=== PATIENT | male | born 1990 | race Caucasian/White ===

== ENCOUNTER 2016-11-20 15:13 | Outpatient (CLI) | payer MEDICAID ==
[2016-11-20 17:25] LABS: BASOPHILS % (AUTO) 0.5 %; EOSINOPHILS # (AUTO) 0.1 10^3/uL (0.0-0.7); EOSINOPHILS % (AUTO) 1.4 %; HCT - HEMATOCRIT 45.9 % (42.0-52.0); HGB - HEMOGLOBIN 15.5 g/dL (14.0-18.0); LYMPHOCYTES # (AUTO) 2.7 10^3/uL (1.5-3.5); LYMPHOCYTES % (AUTO) 38.1 %; MEAN CORPUSCULAR HEMOGLOBIN 30.2 pg (27.0-31.0); MEAN CORPUSCULAR HGB CONC 33.8 g/dL (32.0-36.0); MEAN CORPUSCULAR VOLUME 89.4 fL (80.0-94.0); MEAN PLATELET VOLUME 8.1 fL (7.4-11.4); MONOCYTES # (AUTO) 0.5 10^3/uL (0.0-1.0); MONOCYTES % (AUTO) 7.4 %; NEUTROPHILS # (AUTO) 3.8 10^3/uL (1.5-6.6); NEUTROPHILS % (AUTO) 52.6 %; NUCLEATED RED BLOOD CELLS AUTO 0.1 /100WBC; RED BLOOD COUNT 5.13 10^6/uL (4.70-6.10); RED CELL DISTRIBUTION WIDTH 13.3 % (12.0-15.0); UNCORRECTED WHITE BLOOD COUNT 7.2 x10^3/uL; WHITE BLOOD COUNT 7.2 x10^3/uL (4.8-10.8)
[2016-11-20 18:09] LABS: ALBUMIN/GLOBULIN RATIO 1.2 (1.0-2.2); BILIRUBIN,TOTAL 0.4 mg/dL (0.2-1.0); CALCIUM 9.5 mg/dL (8.5-10.3); CREATININE 0.9 mg/dL (0.6-1.2); POTASSIUM 3.8 mmol/L (3.5-5.0); TOTAL PROTEIN 7.5 g/dL (6.7-8.2)
[2016-11-20 21:01] LABS: FERRITIN 45.8 ng/mL (23.9-336.2)
[2016-11-20 21:44] LABS: FOLATE > 49.60 ng/mL (5.90 - >24.8)
== END 2016-11-20 15:14 | disposition home or self-care (01) ==
LOC: LAB.F 15:13
PROVIDERS: ATTEND Internal Medicine Gastroenterology
DX: K50.90 Crohn's disease, unspecified, without complications (principal)
CPT/HCPCS: 36415; 80053; 82306; 82607; 82728; 82746; 83540; 84466; 84630; 85025; 85651; 86141

== ENCOUNTER 2017-01-20 12:33 | Outpatient (CLI) | payer MEDICAID | END 2017-01-20 12:34 | disposition critical access hospital (66) | LOC: EMS 12:33 | PROVIDERS: ATTEND Surgery | DX: R45.1 Restlessness and agitation (principal) | CPT/HCPCS: A0425; A0429 ==

== ENCOUNTER 2017-01-20 12:57 | Emergency (ER) | payer MEDICAID ==
[2017-01-20 13:06] VITALS: BP 99/64
--- NOTE | 2017-01-20 13:28 | ED Physician Documentation ---
PD HPI MHE - Stated complaint Stated Complaint: MHE - Chief complaint Chief Complaint: MHE - History obtained from History obtained from: Patient, EMS - History of Present Illness Primary symptom: Aggressive behavior Timing - onset: Today Pain level max: 0 Pain level now: 0 Contributing factors: Family Similar symptoms before: Other (aggresive behavior, sees [facility]. Reportedly was swearing and angry today. Seens his clinician tomorrow.) Recently seen: Not recently seen Review of Systems Ten Systems: 10 systems reviewed and negative Constitutional: denies: Fever, Chills Ears: denies: Ear pain Nose: denies: Rhinorrhea / runny nose, Congestion Throat: denies: Oral lesions / sores, Sore throat Cardiac: denies: Chest pain / pressure Respiratory: denies: Cough GI: denies: Abdominal Pain, Nausea, Diarrhea : denies: Dysuria Skin: denies: Rash Musculoskeletal: denies: Neck pain, Back pain Neurologic: denies: Headache PD PAST MEDICAL HISTORY - Past Medical History Cardiovascular: None Respiratory: Other Neuro: Other Endocrine/Autoimmune: None GI: Crohn's disease : None Psych: Depression Musculoskeletal: Fatigue, Chronic back pain, Other Derm: None - Past Surgical History Past Surgical History: Yes General: Colonoscopy - Present Medications Home Medications: Ambulatory Orders Medication Instructions Recorded Confirmed Certolizumab [Cimzia] 400 06/08/14 12/29/14 Trazodone HCl 350 mg PO DAILY 06/08/14 01/20/17 Divalproex Sodium [Depakote] 500 mg PO 09/16/15 12/09/15 Polyethylene Glycol 3350 [Miralax] 8.5 gm PO DAILY 09/16/15 01/20/17 Methylphenidate HCl 2 tab PO DAILY 12/10/15 01/20/17 [Methylphenidate ER] Divalproex Sodium [Depakote] 1,000 mg pe PO DAILY PM 01/20/17 01/20/17 FLUoxetine [PROzac] 10 mg PO PRN PRN 01/20/17 01/20/17 - Allergies Allergies/Adverse Reactions: Allergies Allergy/AdvReac Type Severity Reaction Status Date / Time mesalamine [From Pentasa] Allergy vomiting Verified 12/09/15 22:55 soybean Allergy Hives Verified 12/09/15 22:55 venom-honey bee Allergy Anaphylaxis Verified 12/09/15 22:55 [bee venom (honey bee)] - Social History Does the pt smoke?: No Smoking Status: Never smoker Does the pt drink ETOH?: No Does the pt have substance abuse?: No - Immunizations Immunizations are current?: Yes - POLST Patient has POLST: No PD ED PE NORMAL - Vitals Vital signs reviewed: Yes - General General: Alert and oriented X 3, No acute distress - HEENT HEENT: Moist mucous membranes - Neck Neck: Supple, no meningeal sign - Cardiac Cardiac: RRR, Strong equal pulses - Respiratory Respiratory: No respiratory distress, Clear bilaterally - Abdomen Abdomen: Soft, Non tender - Derm Derm: Warm and dry - Neuro Neuro: Alert and oriented X 3 - Psych Psych: Normal mood, Normal affect Results - Vitals Vitals: Vital Signs - 24 hr 01/20/17 12:59 Temperature 36.7 C Heart Rate 70 Respiratory 16 Rate Blood Pressure 99/64 O2 Saturation 92 Oxygen O2 Source Room air PD MEDICAL DECISION MAKING - ED course Complexity details: re-evaluated patient, considered differential, d/w patient, d/w family, d/w risk consultant (SCOTT Knight) ED course: Patient is calm and cooperative in the emergency department. No angry outbursts here. Social work was consulted and grandparents arrived in the emergency department. They are comfortable taking him home at this time. He has an appointment with [facility] tomorrow and the [facility] will call and check on the patient tonight at home. Patient and family counseled regarding signs and symptoms for which I believe and urgent re-evaluation would be necessary. Patient with good understanding of and agreement to plan and is comfortable going home at this time This document was made in part using voice recognition software. While efforts are made to proofread this document, sound alike and grammatical errors may occur. Departure - Departure Disposition: 01 Home, Self Care Clinical Impression: Aggressive behavior of adult Condition: Good Instructions: ED Stress React Follow-Up: your,counselor tomorrow [Other] Comments: Follow up with [facility] tomorrow. You may want to talk to your doctor about prescription medications for when you are angry or agitated. Discharge Date/Time: 01/20/17 15:12
== END 2017-01-20 15:12 | disposition home or self-care (01) ==
LOC: EDUNIT# → ED 12:57
DX: F91.8 Other conduct disorders (principal)
CPT/HCPCS: 99283; 99284

== ENCOUNTER 2017-07-15 09:45 | Outpatient (CLI) | payer MEDICAID ==
[2017-07-15 17:38] LABS: VALPROIC ACID (DEPAKOTE) 45.3 ug/mL
== END 2017-07-15 09:46 | disposition home or self-care (01) ==
LOC: LAB.F 09:45
PROVIDERS: ATTEND Psychiatry & Neurology Psychiatry
DX: Z79.899 Other long term (current) drug therapy (principal)
CPT/HCPCS: 36415; 80164

== ENCOUNTER 2017-08-04 16:00 | Emergency (ER) | payer MEDICAID ==
[2017-08-04 16:12] VITALS: BP 151/76
[2017-08-04] MEDS ORDERED: ACETAMINOPHEN 325 MG TABLET PO STA (16:41)
--- NOTE | 2017-08-04 16:42 | ED Physician Documentation ---
History of Present Illness - Stated complaint Stated Complaint: SHARP CHEST PX - Chief complaint Chief Complaint: General - History obtained from History obtained from: Patient - History of Present Illness Timing: Other (A few days ago he was hit to the anterior left chest wall while playing basketball and the pain is worse there today, a sharp pain that is worse with breathing, no radiation.) Review of Systems Constitutional: denies: Fever, Chills Cardiac: reports: Chest pain / pressure. denies: Palpitations, Pedal edema, Calf pain Respiratory: denies: Dyspnea, Cough PD PAST MEDICAL HISTORY - Past Medical History Cardiovascular: None Respiratory: Other Neuro: Other Endocrine/Autoimmune: None GI: Crohn's disease : None Psych: Depression Musculoskeletal: Fatigue, Chronic back pain, Other Derm: None - Past Surgical History Past Surgical History: Yes General: Colonoscopy - Present Medications Home Medications: Ambulatory Orders Medication Instructions Recorded Confirmed Certolizumab [Cimzia] 400 06/08/14 12/29/14 Trazodone HCl 350 mg PO DAILY 06/08/14 01/20/17 Divalproex Sodium [Depakote] 500 mg PO 09/16/15 12/09/15 Polyethylene Glycol 3350 [Miralax] 8.5 gm PO DAILY 09/16/15 01/20/17 Methylphenidate HCl 2 tab PO DAILY 12/10/15 01/20/17 [Methylphenidate ER] Divalproex Sodium [Depakote] 1,000 mg pe PO DAILY PM 01/20/17 01/20/17 FLUoxetine [PROzac] 10 mg PO PRN PRN 01/20/17 01/20/17 Methotrexate [Methotrexate] ORAL 08/04/17 Pantoprazole [Protonix] 40 mg PO DAILY 08/04/17 08/04/17 - Allergies Allergies/Adverse Reactions: Allergies Allergy/AdvReac Type Severity Reaction Status Date / Time mesalamine [From Pentasa] Allergy vomiting Verified 08/04/17 16:12 soybean Allergy Hives Verified 08/04/17 16:12 venom-honey bee Allergy Anaphylaxis Verified 08/04/17 16:12 [bee venom (honey bee)] - Social History Does the pt smoke?: No Smoking Status: Never smoker Does the pt drink ETOH?: No Does the pt have substance abuse?: No - Immunizations Immunizations are current?: Yes - POLST Patient has POLST: No PD ED PE NORMAL - Vitals Vital signs reviewed: Yes - General General: Alert and oriented X 3, No acute distress - Cardiac Cardiac: RRR, No murmur, Other (TTP about rib 6 or so just lateral to costochondral junction on the left) - Respiratory Respiratory: No respiratory distress, Clear bilaterally - Neuro Neuro: Alert and oriented X 3, Normal speech Results - Vitals Vitals: Vital Signs - 24 hr 08/04/17 16:09 Temperature 36.8 C Heart Rate 93 Respiratory 16 Rate Blood Pressure 151/76 H O2 Saturation 95 Oxygen O2 Source Room air - EKG (time done) 1605 Rate: Rate (enter#) (89) Rhythm: NSR [place]: Normal Intervals: Normal AR QRS: Normal Ischemia: Normal ST segments Computer interpretation: Agree with computer - Rads (name of study) L ribs and AJ chest Radiology: EMP read contemporaneously (NAD) Departure - Departure Disposition: 01 Home, Self Care Clinical Impression: Chest wall contusion Qualifiers: Encounter type: initial encounter Laterality: left Qualified Code(s): S20.212A - Contusion of left front wall of thorax, initial encounter Condition: Good Record reviewed to determine appropriate education?: Yes Instructions: ED Contusion Chest Wall Comments: Tylenol as needed for pain. Return if worse. Follow-up with your doctor in 1 week if not better. Discharge Date/Time: 08/04/17 17:32
--- NOTE | 2017-08-04 17:18 | XRAY Report ---
EXAM: LEFT RIB RADIOGRAPHY EXAM DATE: 08/04/2017 05:06 PM. CLINICAL HISTORY: Trauma, pain. COMPARISON: Chest dated 06/08/2014. TECHNIQUE: 1 view of the chest and 2 views of the ribs. FINDINGS: Bones: Normal. No fracture or bone lesion. Lungs: Clear. No effusion or pneumothorax. Mediastinum: Heart and mediastinal contours are unremarkable. Upper lobe vessels not distended. Other: None. IMPRESSION: Normal chest and rib radiography. [facility] Referring Provider Line: [phone] SITE ID: [id number]
--- NOTE | 2017-08-04 17:18 | XRAY Preliminary Report ---
Exam: XR RIBS W/PA CHEST LT IMPRESSION: Normal chest and rib radiography. [facility] SITE ID: [id number]
== END 2017-08-04 17:32 | disposition home or self-care (01) ==
LOC: ED 16:00
DX: S20.212A Contusion of left front wall of thorax, initial encounter (principal); W21.05XA Struck by basketball, initial encounter; X58.XXXA Exposure to other specified factors, initial encounter; Y93.67 Activity, basketball
CPT/HCPCS: 71101; 93005; 99283; A9270

== ENCOUNTER 2018-01-28 18:24 | Emergency (ER) | payer MEDICAID ==
--- NOTE | 2018-01-28 19:18 | ED Physician Documentation ---
PD HPI GI BLEED - Stated complaint Stated Complaint: RECTAL BLEED - Chief complaint Chief Complaint: General - History obtained from History obtained from: Patient - History of Present Illness Timing - onset: How many days ago (2-3) Timing - duration: Days (2-3) Timing - details: Gradual onset, Intermittant Associated symptoms: BRBPR (He has noticed perirectal pain with wiping and walking and has noted bright red blood on the toilet paper when wiping. He denies any obvious blood in his stool. He denies any general belly pain. He has not had any constipation. He states his bowel movements are soft and the last one was today. He does have history of Crohn's disease. He has not had any proctitis in the past.) Contributing factors: No: Sick contact, Bad food, Recent antibiotics Worsened by: Other (pain with BM and walking.) Similar symptoms before: Has not had sx before (history of crohns but no rectal involvement previously.) Recently seen: Not recently seen Review of Systems Constitutional: denies: Fever, Chills GI: denies: Nausea, Vomiting, Constipation, Bloody / black stool PD PAST MEDICAL HISTORY - Past Medical History Cardiovascular: None, Hypertension Respiratory: Other Endocrine/Autoimmune: None GI: Crohn's disease : None Psych: Depression Musculoskeletal: Fatigue, Chronic back pain, Other Derm: None - Past Surgical History Past Surgical History: Yes General: Appendectomy, Colonoscopy - Present Medications Home Medications: Ambulatory Orders Medication Instructions Recorded Confirmed Certolizumab [Cimzia] 400 06/08/14 12/29/14 Trazodone HCl 350 mg PO DAILY 06/08/14 01/20/17 Divalproex Sodium [Depakote] 500 mg PO 09/16/15 12/09/15 Polyethylene Glycol 3350 [Miralax] 8.5 gm PO DAILY 09/16/15 01/20/17 Methylphenidate HCl 2 tab PO DAILY 12/10/15 01/20/17 [Methylphenidate ER] Divalproex Sodium [Depakote] 1,000 mg pe PO DAILY PM 01/20/17 01/20/17 FLUoxetine [PROzac] 10 mg PO PRN PRN 01/20/17 01/20/17 Methotrexate [Methotrexate] ORAL 08/04/17 Pantoprazole [Protonix] 40 mg PO DAILY 08/04/17 08/04/17 Hydrocortisone Acetate [Anucort-Hc] 25 mg RC DAILY #7 supp.rect 01/28/18 - Allergies Allergies/Adverse Reactions: Allergies Allergy/AdvReac Type Severity Reaction Status Date / Time mesalamine [From Pentasa] Allergy vomiting Verified 01/28/18 18:35 soybean Allergy Hives Verified 01/28/18 18:35 venom-honey bee Allergy Anaphylaxis Verified 01/28/18 18:35 [bee venom (honey bee)] - Social History Does the pt smoke?: No Smoking Status: Never smoker Does the pt drink ETOH?: No Does the pt have substance abuse?: No - Immunizations Immunizations are current?: Yes - POLST Patient has POLST: No PD ED PE NORMAL - Vitals Vital signs reviewed: Yes - General General: Alert and oriented X 3, No acute distress, Well developed/nourished - Abdomen Abdomen: Soft, Non tender - Male Male : Deferred - Rectal Rectal: Other (no perirectal tenderness nor swelling. No skin sores. No external hemorrhoids. Digital exam shows area of soft fullness/inflammation c/w internal hemorrhoid but does not feel thrombosed. Stool in vault is brown and soft and tests guiac negative. ) - Derm Derm: Normal color, Warm and dry - Neuro Neuro: Alert and oriented X 3, No motor deficit, Normal speech Results - Vitals Vitals: Vital Signs - 24 hr 01/28/18 18:33 Temperature 36.1 C L Heart Rate 97 Respiratory 18 Rate Blood Pressure 109/76 O2 Saturation 97 Oxygen O2 Source Room air PD MEDICAL DECISION MAKING - ED course Complexity details: considered differential, d/w patient - Sepsis Event Vital Signs: Vital Signs - 24 hr 01/28/18 18:33 Temperature 36.1 C L Heart Rate 97 Respiratory 18 Rate Blood Pressure 109/76 O2 Saturation 97 Oxygen O2 Source Room air Departure - Departure Disposition: 01 Home, Self Care Clinical Impression: Rectal pain, Internal hemorrhoid Crohns disease Qualifiers: Gastrointestinal tract location: unspecified location Digestive disease complication type: without complication Qualified Code(s): K50.90 - Crohn's disease, unspecified, without complications Condition: Stable Record reviewed to determine appropriate education?: Yes Instructions: ED Hemorrhoids Follow-Up: Abner Galloway MD [Primary Care Provider] - Prescriptions: Hydrocortisone Acetate [Anucort-Hc] 25 mg RC DAILY #7 supp.rect Comments: I can feel an internal hemorrhoid. Your stool is guaiac negative so no obvious bleeding from up higher. There is no signs of abscess or fistula in the perirectal area. We will treat this with steroid suppositories daily for a week. Recheck if not improving over the next several days to week.Tylenol if needed for pains.
[2018-01-28] MEDS ORDERED: HYDROCORTISONE 25 MG SUPPOSITORY PR STA (19:40)
[2018-01-28 20:00] VITALS: BP 118/71
== END 2018-01-28 20:00 | disposition home or self-care (01) ==
LOC: ED 18:24
DX: K62.89 Other specified diseases of anus and rectum (principal); K64.8 Other hemorrhoids; K50.90 Crohn's disease, unspecified, without complications; I10 Essential (primary) hypertension
CPT/HCPCS: 99283; J3490

== ENCOUNTER 2018-02-08 09:47 | Emergency (ER) | payer MEDICAID ==
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
[2018-02-08 11:15] LABS: MUDS CUTOFF CONCENTRATIONS CUTOFF CONC BELOW:
[2018-02-08 11:20] LABS: BILIRUBIN,URINE NEGATIVE (NEGATIVE); CLARITY,URINE CLEAR (CLEAR); GLUCOSE, URINE (UA) NEGATIVE (NEGATIVE); KETONES,URINE (UA) NEGATIVE (NEGATIVE); LEUKOCYTE ESTERASE, URINE NEGATIVE (NEGATIVE); NITRITE,URINE NEGATIVE (NEGATIVE); OCCULT BLOOD,URINE NEGATIVE (NEGATIVE); PH,URINE 7.5 PH (5.0-7.5); PROTEIN,URINE NEGATIVE (NEGATIVE); UROBILINOGEN,URINE 0.2 (NORMAL) E.U./dL (NORMAL)
[2018-02-08 11:34] LABS: COCAINE SCREEN URINE NEGATIVE (NEGATIVE); METHAMPHETAMINES SCREEN, URINE NEGATIVE (NEGATIVE)
[2018-02-08 11:35] LABS: AMPHETAMINE SCREEN,URINE NEGATIVE (NEGATIVE); BENZODIAZEPINES SCREEN, URINE POSITIVE (NEGATIVE); METHADONE SCREEN, URINE NEGATIVE (NEGATIVE); OPIATE SCREEN, URINE NEGATIVE (NEGATIVE); OXYCODONE SCREEN, URINE NEGATIVE (NEGATIVE); PROPOXYPHENE SCREEN, URINE NEGATIVE (NEGATIVE); TRICYCLIC ANTIDEPRESSANT,URINE NEGATIVE (NEGATIVE)
[2018-02-08 11:58] LABS: BASOPHILS # (AUTO) 0.1 10^3/uL (0.0-0.1); BASOPHILS % (AUTO) 0.8 %; EOSINOPHILS # (AUTO) 0.1 10^3/uL (0.0-0.7); EOSINOPHILS % (AUTO) 1.4 %; HGB - HEMOGLOBIN 14.5 g/dL (14.0-18.0); LYMPHOCYTES # (AUTO) 2.9 10^3/uL (1.5-3.5); LYMPHOCYTES % (AUTO) 42.5 %; MEAN CORPUSCULAR HEMOGLOBIN 30.7 pg (27.0-31.0); MEAN CORPUSCULAR HGB CONC 34.9 g/dL (32.0-36.0); MEAN PLATELET VOLUME 7.3 fL (7.4-11.4); MONOCYTES # (AUTO) 0.6 10^3/uL (0.0-1.0); MONOCYTES % (AUTO) 8.6 %; NEUTROPHILS # (AUTO) 3.1 10^3/uL (1.5-6.6); NEUTROPHILS % (AUTO) 46.7 %; PLT - PLATELET COUNT 274 10^3/uL (130-450); RED CELL DISTRIBUTION WIDTH 13.8 % (12.0-15.0); WHITE BLOOD COUNT 6.7 x10^3/uL (4.8-10.8)
[2018-02-08 12:10] LABS: ALBUMIN 3.7 g/dL (3.2-5.5); ALBUMIN/GLOBULIN RATIO 1.2 (1.0-2.2); ALKALINE PHOSPHATASE 50 IU/L (42-121); ALT ALANINE AMINOTRANSFERASE 27 IU/L (10-60); AST ASPARTATE AMINOTRANSFERASE 20 IU/L (10-42); BILIRUBIN,TOTAL 0.4 mg/dL (0.2-1.0); BUN - BLOOD UREA NITROGEN 14 mg/dL (6-20); CARBON DIOXIDE - CO2 28 mmol/L (21-32); CHLORIDE 100 mmol/L (101-111); CREATININE 0.8 mg/dL (0.6-1.2); GFR - MDRD 117 (>89); GLUCOSE 92 mg/dL (70-100); LIPASE 27 U/L (22-51); SODIUM 137 mmol/L (135-145); TOTAL PROTEIN 6.8 g/dL (6.7-8.2)
[2018-02-08 12:12] LABS: VALPROIC ACID (DEPAKOTE) 72.6 ug/mL
[2018-02-08 18:03] VITALS: BP 111/79
== END 2018-02-08 18:22 | disposition home or self-care (01) ==
LOC: ED 09:47
DX: F91.8 Other conduct disorders (principal); I10 Essential (primary) hypertension; Q86.0 Fetal alcohol syndrome (dysmorphic)
CPT/HCPCS: 36415; 80053; 80164; 80306; 80320; 81001; 81003; 83690; 85025; 87086; 99283; 99284

== ENCOUNTER 2018-07-22 11:15 | Outpatient (CLI) | payer MEDICAID | END 2018-07-22 11:16 | disposition home or self-care (01) | LOC: LAB 11:15 | PROVIDERS: ATTEND Registered Nurse | DX: Z53.9 Procedure and treatment not carried out, unspecified reason (principal) ==

== ENCOUNTER 2018-07-27 07:28 | Outpatient (CLI) | payer MEDICAID ==
[2018-07-27 10:13] LABS: HGB - HEMOGLOBIN 15.9 g/dL (14.0-18.0); MEAN CORPUSCULAR HEMOGLOBIN 30.9 pg (27.0-31.0); MEAN CORPUSCULAR HGB CONC 34.8 g/dL (32.0-36.0); MEAN CORPUSCULAR VOLUME 88.9 fL (80.0-94.0); MEAN PLATELET VOLUME 7.6 fL (7.4-11.4); RED BLOOD COUNT 5.14 10^6/uL (4.70-6.10); RED CELL DISTRIBUTION WIDTH 13.3 % (12.0-15.0); WHITE BLOOD COUNT 6.1 x10^3/uL (4.8-10.8)
[2018-07-27 10:18] LABS: ALBUMIN 4.1 g/dL (3.2-5.5); ALBUMIN/GLOBULIN RATIO 1.2 (1.0-2.2); ALKALINE PHOSPHATASE 51 IU/L (42-121); ALT ALANINE AMINOTRANSFERASE 48 IU/L (10-60); AST ASPARTATE AMINOTRANSFERASE 30 IU/L (10-42); BILIRUBIN,TOTAL 0.6 mg/dL (0.2-1.0); BUN - BLOOD UREA NITROGEN 16 mg/dL (6-20); CALCIUM 9.6 mg/dL (8.5-10.3); CARBON DIOXIDE - CO2 27 mmol/L (21-32); CHLORIDE 101 mmol/L (101-111); CREATININE 0.9 mg/dL (0.6-1.2); GFR - MDRD 102 (>89); GLUCOSE 93 mg/dL (70-100); SODIUM 138 mmol/L (135-145); TOTAL PROTEIN 7.5 g/dL (6.7-8.2); VALPROIC ACID (DEPAKOTE) 89.3 ug/mL
[2018-07-27 10:30] LABS: HB2 TOTAL 17.4 g/dL; HEMOGLOBIN A1C 0.53 g/dL; HEMOGLOBIN A1C % 4.9 % (4.6-6.2)
== END 2018-07-27 07:29 | disposition home or self-care (01) ==
LOC: LAB.F 07:28
PROVIDERS: ATTEND Registered Nurse
DX: Z79.899 Other long term (current) drug therapy (principal)
CPT/HCPCS: 36415; 80053; 80164; 83036; 84443; 85027

== ENCOUNTER 2020-02-09 10:13 | Outpatient (CLI) | payer MEDICAID ==
--- NOTE | 2020-02-09 13:54 | XRAY Report ---
PROCEDURE: Chest 1 View X-Ray INDICATIONS: POSITIVE QUANTIFERON-RB TECHNIQUE: One view of the chest was acquired. COMPARISON: Chest x-ray/rib series 07/11/2017 FINDINGS: Surgical changes and devices: None. Lungs and pleura: No pleural effusions or pneumothorax. Lungs are clear. Mediastinum: Mediastinal contours appear normal. Heart size is normal. Bones and chest wall: No suspicious bony lesions. Overlying soft tissues appear unremarkable. IMPRESSION: No acute pulmonary process. Reviewed by: Shae Chilel MD on 02/09/2020 1:53 PM PDT Approved by: Shae Chilel MD on 02/09/2020 1:53 PM PDT Station ID: [id number]
== END 2020-02-09 10:14 | disposition home or self-care (01) ==
LOC: DI 10:13
PROVIDERS: ATTEND Physician Assistant
DX: R76.12 Nonspecific reaction to cell mediated immunity measurement of gamma interferon antigen response without active tuberculosis (principal)
CPT/HCPCS: 71045

== ENCOUNTER 2020-03-12 12:03 | Outpatient (CLI) | payer MEDICAID | END 2020-03-12 12:04 | disposition home or self-care (01) | LOC: COV 12:03 | PROVIDERS: ATTEND Family Medicine | DX: R05 Cough (principal); M79.10 Myalgia, unspecified site; R53.83 Other fatigue; R68.83 Chills (without fever); J02.9 Acute pharyngitis, unspecified; R11.0 Nausea; Z20.828 Contact with and (suspected) exposure to other viral communicable diseases ==

== ENCOUNTER 2020-09-02 07:00 | Outpatient (CLI) | payer MEDICAID | END 2020-09-02 23:59 | disposition home or self-care (01) | LOC: COV 07:00 | PROVIDERS: ATTEND Family Medicine | DX: R50.9 Fever, unspecified (principal); R53.83 Other fatigue; R07.0 Pain in throat; Z20.822 Contact with and (suspected) exposure to COVID-19 ==

== ENCOUNTER 2020-10-28 18:29 | Emergency (ER) | payer MEDICAID ==
[2020-10-28 18:37] VITALS: BP 130/85
[2020-10-28] MEDS ORDERED: HYDROcod/ACETAM 5/325 MG TABLET PO STA (18:44)
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
== END 2020-10-28 19:40 | disposition home or self-care (01) ==
LOC: ED 18:29
DX: S42.035A Nondisplaced fracture of lateral end of left clavicle, initial encounter for closed fracture (principal); W01.198A Fall on same level from slipping, tripping and stumbling with subsequent striking against other object, initial encounter; Y93.55 Activity, bike riding; I10 Essential (primary) hypertension
CPT/HCPCS: 73030; 99283; 99284; A9270

== ENCOUNTER 2021-01-24 09:39 | Outpatient (CLI) | payer MEDICAID ==
[2021-01-24 14:36] LABS: BASOPHILS # (AUTO) 0.1 10^3/uL (0.0-0.1); BASOPHILS % (AUTO) 0.8 %; EOSINOPHILS # (AUTO) 0.1 10^3/uL (0.0-0.7); EOSINOPHILS % (AUTO) 2.1 %; HGB - HEMOGLOBIN 15.1 g/dL (14.0-18.0); LYMPHOCYTES # (AUTO) 2.2 10^3/uL (1.5-3.5); LYMPHOCYTES % (AUTO) 36.2 %; MEAN CORPUSCULAR HEMOGLOBIN 30.1 pg (27.0-31.0); MEAN CORPUSCULAR HGB CONC 33.6 g/dL (32.0-36.0); MEAN CORPUSCULAR VOLUME 89.6 fL (80.0-94.0); MEAN PLATELET VOLUME 9.7 fL (7.4-11.4); MONOCYTES # (AUTO) 0.6 10^3/uL (0.0-1.0); NEUTROPHILS # (AUTO) 3.2 10^3/uL (1.5-6.6); NEUTROPHILS % (AUTO) 51.6 %; PLT - PLATELET COUNT 355 10^3/uL (130-450); RED BLOOD COUNT 5.02 10^6/uL (4.70-6.10); RED CELL DISTRIBUTION WIDTH 12.4 % (12.0-15.0); WHITE BLOOD COUNT 6.1 x10^3/uL (4.8-10.8)
[2021-01-24 14:57] LABS: ALBUMIN 4.3 g/dL (3.2-5.5); ALBUMIN/GLOBULIN RATIO 1.1 (1.0-2.2); BILIRUBIN,TOTAL 1.1 mg/dL (0.2-1.0); CALCIUM 9.6 mg/dL (8.5-10.3); CREATININE 0.7 mg/dL (0.6-1.2); TOTAL PROTEIN 8.1 g/dL (6.7-8.2)
== END 2021-01-24 09:40 | disposition home or self-care (01) ==
LOC: LAB.S 09:39
PROVIDERS: ATTEND Internal Medicine
DX: Z22.7 Latent tuberculosis (principal)
CPT/HCPCS: 36415; 80053; 85025

== ENCOUNTER 2021-01-31 08:57 | Outpatient (CLI) | payer MEDICAID ==
[2021-01-31 15:45] LABS: ALBUMIN/GLOBULIN RATIO 1.1 (1.0-2.2); BILIRUBIN,TOTAL 0.7 mg/dL (0.2-1.0); CALCIUM 9.3 mg/dL (8.5-10.3); CREATININE 0.8 mg/dL (0.6-1.2); POTASSIUM 4.6 mmol/L (3.5-5.0); TOTAL PROTEIN 7.7 g/dL (6.7-8.2)
== END 2021-01-31 08:58 | disposition home or self-care (01) ==
LOC: LAB.S 08:57
PROVIDERS: ATTEND Internal Medicine
DX: D84.821 Immunodeficiency due to drugs (principal); Z79.899 Other long term (current) drug therapy; Z79.2 Long term (current) use of antibiotics
CPT/HCPCS: 36415; 80053

== ENCOUNTER 2021-03-14 09:17 | Outpatient (CLI) | payer MEDICAID ==
[2021-03-14 15:30] LABS: ALBUMIN 4.1 g/dL (3.2-5.5); ALBUMIN/GLOBULIN RATIO 1.1 (1.0-2.2); BASOPHILS # (AUTO) 0.1 10^3/uL (0.0-0.1); BASOPHILS % (AUTO) 0.7 %; BILIRUBIN,TOTAL 0.5 mg/dL (0.2-1.0); CALCIUM 9.9 mg/dL (8.5-10.3); CREATININE 0.6 mg/dL (0.6-1.2); EOSINOPHILS # (AUTO) 0.2 10^3/uL (0.0-0.7); EOSINOPHILS % (AUTO) 2.5 %; HCT - HEMATOCRIT 45.8 % (42.0-52.0); HGB - HEMOGLOBIN 15.2 g/dL (14.0-18.0); LYMPHOCYTES # (AUTO) 2.5 10^3/uL (1.5-3.5); LYMPHOCYTES % (AUTO) 34.6 %; MEAN CORPUSCULAR HEMOGLOBIN 29.5 pg (27.0-31.0); MEAN CORPUSCULAR HGB CONC 33.2 g/dL (32.0-36.0); MEAN CORPUSCULAR VOLUME 88.8 fL (80.0-94.0); MEAN PLATELET VOLUME 9.7 fL (7.4-11.4); MONOCYTES # (AUTO) 0.5 10^3/uL (0.0-1.0); NEUTROPHILS # (AUTO) 3.9 10^3/uL (1.5-6.6); NEUTROPHILS % (AUTO) 54.6 %; PLT - PLATELET COUNT 379 10^3/uL (130-450); POTASSIUM 4.1 mmol/L (3.5-5.0); RED BLOOD COUNT 5.16 10^6/uL (4.70-6.10); RED CELL DISTRIBUTION WIDTH 13.1 % (12.0-15.0); TOTAL PROTEIN 7.9 g/dL (6.7-8.2); WHITE BLOOD COUNT 7.1 x10^3/uL (4.8-10.8)
== END 2021-03-14 09:18 | disposition home or self-care (01) ==
LOC: LAB.S 09:17
PROVIDERS: ATTEND Internal Medicine
DX: Z22.7 Latent tuberculosis (principal); R21 Rash and other nonspecific skin eruption; R11.2 Nausea with vomiting, unspecified
CPT/HCPCS: 36415; 80053; 85025

== ENCOUNTER 2022-12-06 13:25 | Outpatient (CLI) | payer MEDICAID | END 2022-12-06 23:59 | disposition critical access hospital (66) | LOC: EMS 13:25 | DX: R51.9 Headache, unspecified (principal); R11.2 Nausea with vomiting, unspecified | CPT/HCPCS: A0425; A0429; A0999 ==

== ENCOUNTER 2022-12-06 13:44 | Emergency (ER) | payer MEDICAID ==
[2022-12-06] MEDS ORDERED: HYDROmorphone 0.5 MG/0.5 ML SYRINGE IM STA (13:56)
[2022-12-06] MEDS ORDERED: KETOROLAC 60 MG/2 ML VIAL IM STA (13:56)
[2022-12-06] MEDS ORDERED: DROPERIDOL 5 MG/2 ML VIAL IM STA (13:56)
--- NOTE | 2022-12-06 14:01 | ED Physician Documentation ---
History of Present Illness - Stated complaint Stated Complaint: KING/NAUSEA/VOMITING - Chief complaint Chief Complaint: Neuro - History obtained from History obtained from: Patient, EMS - Additonal information Additional information: The patient comes to the emergency department chief complaint of headache that started around 630 this morning. He states that it started after he ate 2 sandwiches and a bowl of cereal. He states that he usually gets headaches when he is stressed out or has been in the sun too much. He denies any recent head injury. He states the headache persisted throughout the morning and then after he tried to eat lunch around noon, he vomited several times. The patient states that normally takes Tylenol for his headaches but he did not take anything for the headache today. He states this feels similar to headaches he has had previously. No other symptoms of illness. No diarrhea, sore throat, rhinorrhea, or cough. No fevers or chills. He states that he is otherwise fairly healthy. He did just have his Prozac dose increased a couple of days ago. PD PAST MEDICAL HISTORY - Past Medical History Cardiovascular: None, Hypertension Respiratory: Other Endocrine/Autoimmune: None GI: Crohn's disease : None Psych: Depression Musculoskeletal: Osteoarthritis, Fatigue, Chronic back pain, Other Derm: None - Past Surgical History Past Surgical History: Yes General: Appendectomy, Colonoscopy - Present Medications Home Medications: Ambulatory Orders Medication Instructions Recorded Confirmed Certolizumab [Cimzia] 400 06/08/14 12/29/14 Trazodone HCl 350 mg PO DAILY 06/08/14 01/20/17 Divalproex Sodium [Depakote] 500 mg PO 09/16/15 12/09/15 polyethylene glycoL 3350 [Miralax] 8.5 gm PO DAILY 09/16/15 01/20/17 Methylphenidate HCl 2 tab PO DAILY 12/10/15 01/20/17 [Methylphenidate ER] Divalproex Sodium [Depakote] 1,000 mg pe PO DAILY PM 01/20/17 01/20/17 FLUoxetine [PROzac] 10 mg PO PRN PRN 01/20/17 01/20/17 Methotrexate ORAL 08/04/17 Pantoprazole [Protonix] 40 mg PO DAILY 08/04/17 08/04/17 HYDROcod/ACETAM 5/325 [[place] 5/325] 1 - 2 ea PO Q6H PRN #14 tablet 10/28/20 - Allergies Allergies/Adverse Reactions: Allergies Allergy/AdvReac Type Severity Reaction Status Date / Time mesalamine [From Pentasa] Allergy vomiting Verified 10/28/20 18:34 soybean Allergy Hives Verified 10/28/20 18:34 venom-honey bee Allergy Anaphylaxis Verified 10/28/20 18:34 [bee venom (honey bee)] - Social History Does the pt smoke?: No Smoking Status: Never smoker Does the pt drink ETOH?: No Does the pt have substance abuse?: Yes - Immunizations Immunizations are current?: Yes - POLST Patient has POLST: No PD ED PE NORMAL - Vitals Vital signs reviewed: Yes - General General: No acute distress, Well developed/nourished, Other (The patient lays in bed with his eyes closed and occasionally dozes off but is easily arousable and answers questions appropriately when aroused.) - HEENT HEENT: Atraumatic, PERRL, EOMI, Moist mucous membranes - Neck Neck: Supple, no meningeal sign - Cardiac Cardiac: RRR, No murmur, Strong equal pulses - Respiratory Respiratory: No respiratory distress, Clear bilaterally - Abdomen Abdomen: Soft, Non tender, Non distended - Derm Derm: Normal color, Warm and dry, No rash - Extremities Extremities: No deformity, No edema - Neuro Neuro: Alert and oriented X 3, school office manager 2-12 intact, No motor deficit, No sensory deficit, Normal speech - Psych Psych: Normal mood, Normal affect Results - Vitals Vitals: Vital Signs - 24 hr 12/06/22 15:18 Heart Rate 95 Respiratory 18 Rate Blood Pressure 93/56 L O2 Saturation 95 Oxygen O2 Source Room air PD Medical Decision Making - ED course Complexity details: considered differential, d/w patient ED course: Patient was given IM Toradol, Dilaudid, and droperidol. Patient was feeling better after symptomatic management. I did not find any evidence of an emergent cause of his headache. We have discussed home management of the symptoms as well as usual indications for return. Departure - Departure Disposition: 01 Home, Self Care Clinical Impression: Headache Qualifiers: Headache type: unspecified Headache chronicity pattern: unspecified pattern Intractability: not intractable Qualified Code(s): R51.9 - Headache, unspecified Vomiting Qualifiers: Vomiting type: bilious vomiting Nausea presence: with nausea Qualified Code(s): R11.14 - Bilious vomiting Condition: Stable Instructions: ED Cephalgia Unspecified Comments: You have been treated in the emergency department today for your headache. There is no evidence of an emergent condition causing your headache, and this is expected to resolve on its own. Please go home, get plenty of rest, and drink plenty of fluids. In the future, when you get a headache, it is best to take the medications that usually work right away and this will likely save you hours of unpleasant symptoms. Please follow-up your primary doctor as needed. Discharge Date/Time: 12/06/22 15:18
[2022-12-06 15:19] VITALS: BP 93/56
== END 2022-12-06 15:18 | disposition home or self-care (01) ==
LOC: ED 13:44
DX: R51.9 Headache, unspecified (principal); R11.14 Bilious vomiting; I10 Essential (primary) hypertension; K50.90 Crohn's disease, unspecified, without complications; Z79.899 Other long term (current) drug therapy
CPT/HCPCS: 96372; 99283; J1170

== ENCOUNTER 2022-12-19 11:10 | Outpatient (CLI) | payer MEDICAID | END 2022-12-19 23:59 | disposition critical access hospital (66) | LOC: EMS 11:10 | DX: R51.9 Headache, unspecified (principal); R11.10 Vomiting, unspecified | CPT/HCPCS: A0425; A0429; A0999 ==

== ENCOUNTER 2023-02-19 12:13 | Emergency (ER) | payer MEDICAID ==
[2023-02-19] MEDS ORDERED: DROPERIDOL 5 MG/2 ML VIAL IM STA (12:20)
[2023-02-19] MEDS ORDERED: KETOROLAC 30 MG/ML VIAL IM STA (12:20)
--- NOTE | 2023-02-19 12:23 | ED Physician Documentation ---
History of Present Illness - Stated complaint Stated Complaint: HEADACHE - Additonal information Additional information: 33-year-old male brought in for evaluation of acute headache. Reports she was resting try to get rid of the headache this morning. [facility]. 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 However he also has a history of migraines and this does not feel different from previous. No falls or trauma. He endorses cannabis use but denies any history of fentanyl methamphetamine or injection drug use. He presents somewhat disheveled but nonfocal. Pleasant and compliant with a history and exam otherwise. Review of Systems Constitutional: denies: Fever, Chills Eyes: reports: Reviewed and negative Throat: reports: Reviewed and negative Cardiac: reports: Reviewed and negative Respiratory: reports: Reviewed and negative Skin: reports: Reviewed and negative Musculoskeletal: reports: Reviewed and negative Neurologic: reports: Headache. denies: Generalized weakness, Numbness, Difficulty speaking, Syncope, Seizure Psychiatric: reports: Reviewed and negative Endocrine: reports: Reviewed and negative PD PAST MEDICAL HISTORY - Past Medical History Cardiovascular: None, Hypertension Respiratory: Other Endocrine/Autoimmune: None GI: Crohn's disease : None Psych: Depression Musculoskeletal: Osteoarthritis, Fatigue, Chronic back pain, Other Derm: None - Past Surgical History Past Surgical History: Yes General: Appendectomy, Colonoscopy - Present Medications Home Medications: Ambulatory Orders Medication Instructions Recorded Confirmed Certolizumab [Cimzia] 400 06/08/14 12/29/14 Trazodone HCl 350 mg PO DAILY 06/08/14 01/20/17 Divalproex Sodium [Depakote] 500 mg PO 09/16/15 12/09/15 polyethylene glycoL 3350 [Miralax] 8.5 gm PO DAILY 09/16/15 01/20/17 Methylphenidate HCl 2 tab PO DAILY 12/10/15 01/20/17 [Methylphenidate ER] Divalproex Sodium [Depakote] 1,000 mg pe PO DAILY PM 01/20/17 01/20/17 FLUoxetine [PROzac] 10 mg PO PRN PRN 01/20/17 01/20/17 Methotrexate ORAL 08/04/17 Pantoprazole [Protonix] 40 mg PO DAILY 08/04/17 08/04/17 HYDROcod/ACETAM 5/325 [[place] 5/325] 1 - 2 ea PO Q6H PRN #14 tablet 10/28/20 - Allergies Allergies/Adverse Reactions: Allergies Allergy/AdvReac Type Severity Reaction Status Date / Time mesalamine [From Pentasa] Allergy vomiting Verified 10/28/20 18:34 soybean Allergy Hives Verified 10/28/20 18:34 venom-honey bee Allergy Anaphylaxis Verified 10/28/20 18:34 [bee venom (honey bee)] pantoprazole AdvReac Nausea Verified 02/19/23 12:34 - Social History Does the pt smoke?: No Smoking Status: Never smoker Does the pt drink ETOH?: No Does the pt have substance abuse?: Yes - Immunizations Immunizations are current?: Yes - POLST Patient has POLST: No PD ED PE NORMAL - General General: Alert and oriented X 3, No acute distress - HEENT HEENT: PERRL, Moist mucous membranes - Neck Neck: Supple, no meningeal sign, No adenopathy - Cardiac Cardiac: RRR, No murmur - Respiratory Respiratory: No respiratory distress, Clear bilaterally - Abdomen Abdomen: Normal bowel sounds, Soft, Non tender - Extremities Extremities: No deformity - Neuro Neuro: Alert and oriented X 3, final canoe inspector 2-12 intact, No motor deficit, Normal speech Eye Opening: Spontaneous Motor: Obeys Commands Verbal: Oriented GCS Score: 15 Results - Vitals Vitals: Vital Signs - 24 hr 02/19/23 12:29 Temperature 36.8 C Heart Rate 81 Respiratory 18 Rate Blood Pressure 103/71 O2 Saturation 96 Oxygen O2 Source Room air PD Medical Decision Making - ED course Complexity details: reviewed results, re-evaluated patient, d/w patient ED course: 33-year-old male who has a history of migraines as well as a known benign cerebellar tumor presents emergency department for evaluation of his migraine. Not sudden onset. Typical of other headaches he has had in the past. Endorses cannabis use but no injection use no fentanyl or methamphetamine. Neurological exam was unremarkable. Here in the emergency department we administered him 30 mg Toradol and 2.5 mg of Inapsine IM. On reevaluation the headache has resolved he is feeling better and desires discharge home. Usual emergent return precautions worsening symptoms was discussed. Departure - Departure Disposition: 01 Home, Self Care Clinical Impression: Headache Qualifiers: Headache type: unspecified Headache chronicity pattern: acute headache Intractability: not intractable Qualified Code(s): R51.9 - Headache, unspecified Instructions: ED Headache Migraine Comments: You were seen today in the emergency department because you developed a headache that is typical of your previous headaches/migraines. You also reported history of a benign cerebellar brain tumor. Here in the emergency department we did give you some Toradol and Inapsine intramuscularly. On reevaluation her headache is feeling better. You are to continue follow-up with your primary care doctor. Return to the ER for any new or worsening symptoms.
[2023-02-19 12:36] VITALS: BP 103/71; O2SAT 96
== END 2023-02-19 13:55 | disposition home or self-care (01) ==
LOC: EDUNIT# → ED 12:13
DX: R51.9 Headache, unspecified (principal); I10 Essential (primary) hypertension; Z59.01 Sheltered homelessness
CPT/HCPCS: 96372; 99283

== ENCOUNTER 2023-03-31 06:12 | Emergency (ER) | payer MEDICAID ==
[2023-03-31 06:33] LABS: BASOPHILS # (AUTO) 0.1 10^3/uL (0.0-0.1); BASOPHILS % (AUTO) 0.6 %; EOSINOPHILS % (AUTO) 0.5 %; HCT - HEMATOCRIT 44.1 % (42.0-52.0); HGB - HEMOGLOBIN 15.5 g/dL (14.0-18.0); LYMPHOCYTES # (AUTO) 2.7 10^3/uL (1.5-3.5); LYMPHOCYTES % (AUTO) 31.3 %; MEAN CORPUSCULAR HEMOGLOBIN 29.7 pg (27.0-31.0); MEAN CORPUSCULAR HGB CONC 35.1 g/dL (32.0-36.0); MEAN CORPUSCULAR VOLUME 84.5 fL (80.0-94.0); MEAN PLATELET VOLUME 9.9 fL (7.4-11.4); MONOCYTES % (AUTO) 11.8 %; NEUTROPHILS # (AUTO) 4.9 10^3/uL (1.5-6.6); NEUTROPHILS % (AUTO) 55.6 %; PLT - PLATELET COUNT 257 10^3/uL (130-450); RED BLOOD COUNT 5.22 10^6/uL (4.70-6.10); RED CELL DISTRIBUTION WIDTH 12.2 % (12.0-15.0); WHITE BLOOD COUNT 8.7 x10^3/uL (4.8-10.8)
[2023-03-31 06:49] LABS: ALBUMIN 4.9 g/dL (3.2-5.5); ALBUMIN/GLOBULIN RATIO 1.4 (1.0-2.2); BILIRUBIN,TOTAL 0.5 mg/dL (0.2-1.0); CALCIUM 10.1 mg/dL (8.5-10.3); CREATININE 0.9 mg/dL (0.6-1.3); POTASSIUM 3.8 mmol/L (3.5-4.5); TOTAL PROTEIN 8.3 g/dL (6.4-8.9)
[2023-03-31] MEDS ORDERED: SODIUM CHLORIDE 0.9% 1,000 ML IV STA (07:53)
[2023-03-31] MEDS ORDERED: PROCHLORPERAZINE 10 MG/2 ML VIAL IVP STA (07:53)
[2023-03-31] MEDS ORDERED: DEXAMETHASONE 10 MG/ML VIAL IVP STA (07:54)
[2023-03-31] MEDS ORDERED: KETOROLAC 30 MG/ML VIAL IVP STA (07:54)
[2023-03-31] MEDS ORDERED: diphenhydrAMINE INJ 50 MG/ML VIAL IVP STA (07:54)
--- NOTE | 2023-03-31 07:58 | ED Physician Documentation ---
PD HPI NVD - Stated complaint Stated Complaint: VOMITING/CHILLS - Chief complaint Chief Complaint: Fever - History obtained from History obtained from: Patient - History of Present Illness Timing - onset: Last night Timing - duration: Hours Timing - details: Abrupt onset, Still present Associated symptoms: Other (chills headache vomiting) Contributing factors: Other (hx of migraines) Improved by: Vomiting Similar symptoms before: Diagnosis (migraine) Recently seen: Not recently seen - Additonal information Additional information: Luis Proctor is a 33-year-old undomiciled male with a history of Crohn's disease and migraine headaches and heat last night has developed a headache and vomiting. He has been vomiting throughout the night and presents this morning for evaluation and treatment. He has had this happen to him a number of times previously. He does not remember what he ate last. He is staying in a long term feels that he is doing well there has a partner with him here today. He denies current illness. He did have chills last night he denies any cough. Review of Systems Constitutional: denies: Fever Ears: denies: Ear pain Nose: reports: Congestion Throat: denies: Sore throat Cardiac: denies: Chest pain / pressure, Palpitations Respiratory: denies: Dyspnea, Cough GI: reports: Nausea, Vomiting. denies: Abdominal Pain : denies: Dysuria, Frequency Skin: denies: Rash Musculoskeletal: denies: Neck pain, Back pain, Extremity pain Neurologic: reports: Headache. denies: Generalized weakness, Focal weakness, Numbness, Head injury, LOC PD PAST MEDICAL HISTORY - Past Medical History Cardiovascular: None, Hypertension Respiratory: Other Neuro: Other Endocrine/Autoimmune: None GI: Crohn's disease : None Psych: Depression Musculoskeletal: Osteoarthritis, Fatigue, Chronic back pain, Other Derm: None - Past Surgical History Past Surgical History: Yes General: Appendectomy, Colonoscopy - Present Medications Home Medications: Ambulatory Orders Medication Instructions Recorded Confirmed Certolizumab [Cimzia] 400 06/08/14 12/29/14 Trazodone HCl 350 mg PO DAILY 06/08/14 01/20/17 Divalproex Sodium [Depakote] 500 mg PO 09/16/15 12/09/15 polyethylene glycoL 3350 [Miralax] 8.5 gm PO DAILY 09/16/15 01/20/17 Methylphenidate HCl 2 tab PO DAILY 12/10/15 01/20/17 [Methylphenidate ER] Divalproex Sodium [Depakote] 1,000 mg pe PO DAILY PM 01/20/17 01/20/17 FLUoxetine [PROzac] 10 mg PO PRN PRN 01/20/17 01/20/17 Methotrexate ORAL 08/04/17 Pantoprazole [Protonix] 40 mg PO DAILY 08/04/17 08/04/17 HYDROcod/ACETAM 5/325 [[place] 5/325] 1 - 2 ea PO Q6H PRN #14 tablet 10/28/20 - Allergies Allergies/Adverse Reactions: Allergies Allergy/AdvReac Type Severity Reaction Status Date / Time mesalamine [From Pentasa] Allergy vomiting Verified 10/28/20 18:34 soybean Allergy Hives Verified 10/28/20 18:34 venom-honey bee Allergy Anaphylaxis Verified 10/28/20 18:34 [bee venom (honey bee)] pantoprazole AdvReac Nausea Verified 02/19/23 12:34 - Social History Does the pt smoke?: No Smoking Status: Never smoker Does the pt drink ETOH?: No Does the pt have substance abuse?: Yes - Immunizations Immunizations are current?: Yes - POLST Patient has POLST: No PD ED PE NORMAL - Vitals Vital signs reviewed: Yes (hypertensive mild) - General General: Alert and oriented X 3, No acute distress, Well developed/nourished - HEENT HEENT: Atraumatic, PERRL, EOMI - Neck Neck: Supple, no meningeal sign, No bony TTP - Cardiac Cardiac: No murmur, Other (tachy to 110) - Respiratory Respiratory: No respiratory distress, Clear bilaterally - Abdomen Abdomen: Normal bowel sounds, Soft, Non tender, Non distended, No organomegaly - Back Back: No CVA TTP, No spinal TTP - Derm Derm: Normal color, Warm and dry, No rash - Extremities Extremities: No deformity, No edema - Neuro Neuro: Alert and oriented X 3, fundraising sale representative 2-12 intact, No motor deficit, No sensory deficit, Normal speech Eye Opening: Spontaneous Motor: Obeys Commands Verbal: Oriented GCS Score: 15 - Psych Psych: Normal mood, Normal affect Results - Vitals Vitals: Vital Signs - 24 hr 03/31/23 03/31/23 06:18 10:04 Temperature 36.9 C 35.9 C L Heart Rate 95 95 Respiratory 17 16 Rate Blood Pressure 113/85 H 116/84 H O2 Saturation 96 98 Oxygen O2 Source Room air - Labs Labs: Laboratory Tests 03/31/23 03/31/23 06:30 06:30 WBC 8.7 RBC 5.22 Hgb 15.5 Hct 44.1 MCV 84.5 MCH 29.7 MCHC 35.1 RDW 12.2 Plt Count 257 MPV 9.9 Neut # (Auto) 4.9 Lymph # (Auto) 2.7 Gregory # (Auto) 1.0 Eos # (Auto) 0.0 Baso # (Auto) 0.1 Absolute Nucleated RBC 0.00 Nucleated RBC % 0.0 Sodium 136 Potassium 3.8 Chloride 102 Carbon Dioxide 24 Anion Gap 10.0 BUN 10 Creatinine 0.9 Estimated GFR (MDRD) 98 Glucose 102 Calcium 10.1 Total Bilirubin 0.5 AST 27 ALT 36 Alkaline Phosphatase 53 Total Protein 8.3 Albumin 4.9 Globulin 3.4 Albumin/Globulin Ratio 1.4 Lipase 27 PD Medical Decision Making - ED course Complexity details: reviewed results, re-evaluated patient, considered differential, d/w patient Reviewed Lab Results: We reviewed a complete blood count showing a normal white blood cell count normal hemoglobin hematocrit and platelets chemistries were completely unremarkable with normal electrolytes normal kidney and liver function. These laboratory values were helpful in determining the length of time and breadth of the patient's illness. These were benign. The patient was eventually diagnosed with migraine and successfully treated. ED course: 33-year-old male with acute vomiting and headache is administered a migraine cocktail consisting of a liter of saline 10 mg of Compazine 30 mg of Toradol 25 mg of Benadryl and 10 mg of dexamethasone. The patient had improvement in his symptoms and was discharged. Departure - Departure Disposition: 01 Home, Self Care Clinical Impression: Migraine Qualifiers: Migraine type: unspecified Status migrainosus presence: without status migrainosus Intractability: not intractable Qualified Code(s): G43.909 - Migraine, unspecified, not intractable, without status migrainosus Condition: Stable Instructions: ED Headache Migraine Follow-Up: [facility] [Provider Group] Comments: Luis, today it looks like you may have had a migraine headache and we have given you in an adult for this and our expectation is resolution of your vomiting and headache. Discharge Date/Time: 03/31/23 10:07
[2023-03-31 10:07] VITALS: BP 116/84; O2SAT 98
== END 2023-03-31 10:07 | disposition home or self-care (01) ==
LOC: ED 06:12
DX: G43.909 Migraine, unspecified, not intractable, without status migrainosus (principal); Z59.01 Sheltered homelessness
CPT/HCPCS: 36415; 80053; 83690; 85025; 96361; 96374; 96375; 99282; 99283; J1200

== ENCOUNTER 2023-04-01 18:54 | Outpatient (CLI) | payer MEDICAID | END 2023-04-01 23:59 | disposition critical access hospital (66) | LOC: EMS 18:54 | DX: R11.2 Nausea with vomiting, unspecified (principal); R51.9 Headache, unspecified; R50.9 Fever, unspecified; R53.83 Other fatigue | CPT/HCPCS: A0425; A0429 ==

== ENCOUNTER 2023-04-01 19:04 | Emergency (ER) | payer MEDICAID ==
[2023-04-01 19:32] LABS: BASOPHILS % (AUTO) 0.3 %; EOSINOPHILS % (AUTO) 0.1 %; HGB - HEMOGLOBIN 14.8 g/dL (14.0-18.0); LYMPHOCYTES # (AUTO) 2.4 10^3/uL (1.5-3.5); LYMPHOCYTES % (AUTO) 30.3 %; MEAN CORPUSCULAR HEMOGLOBIN 30.3 pg (27.0-31.0); MEAN CORPUSCULAR HGB CONC 34.4 g/dL (32.0-36.0); MEAN CORPUSCULAR VOLUME 87.9 fL (80.0-94.0); MEAN PLATELET VOLUME 10.3 fL (7.4-11.4); MONOCYTES # (AUTO) 0.9 10^3/uL (0.0-1.0); MONOCYTES % (AUTO) 11.5 %; NEUTROPHILS # (AUTO) 4.6 10^3/uL (1.5-6.6); NEUTROPHILS % (AUTO) 57.4 %; PLT - PLATELET COUNT 222 10^3/uL (130-450); RED BLOOD COUNT 4.89 10^6/uL (4.70-6.10); RED CELL DISTRIBUTION WIDTH 12.6 % (12.0-15.0); WHITE BLOOD COUNT 7.9 x10^3/uL (4.8-10.8)
[2023-04-01] MEDS ORDERED: ACETAMINOPHEN 325 MG TABLET PO STA (19:49)
[2023-04-01] MEDS ORDERED: SODIUM CHLORIDE 0.9% 1,000 ML IV STA (19:49)
[2023-04-01 19:56] LABS: ALBUMIN 4.5 g/dL (3.2-5.5); ETOH - ETHANOL < 10.0 mg/dL; LIPASE 29 U/L (11-82)
[2023-04-01 19:59] LABS: ALBUMIN/GLOBULIN RATIO 1.3 (1.0-2.2); ALKALINE PHOSPHATASE 46 IU/L (42-121); ALT ALANINE AMINOTRANSFERASE 36 IU/L (10-60); AST ASPARTATE AMINOTRANSFERASE 35 IU/L (10-42); BILIRUBIN,TOTAL 0.4 mg/dL (0.2-1.0); BUN - BLOOD UREA NITROGEN 9 mg/dL (6-20); CALCIUM 10.8 mg/dL (8.5-10.3); CARBON DIOXIDE - CO2 28 mmol/L (21-32); CHLORIDE 99 mmol/L (101-111); GFR - MDRD 87 (>89); GLUCOSE 107 mg/dL (74-104); POTASSIUM 4.3 mmol/L (3.5-4.5); SODIUM 137 mmol/L (135-145); TOTAL PROTEIN 8.1 g/dL (6.4-8.9)
[2023-04-01 20:35] LABS: B. PARAPERTUSSIS- RESP PCR PAN NOT DETECTED; B. PERTUSSIS- RESP PCR PANEL NOT DETECTED; C. PNEUMONIAE- RESP PCR PANEL NOT DETECTED; CORONAVIRUS 229E-RESP PCR NOT DETECTED; CORONAVIRUS HKU1-RESP PCR NOT DETECTED; CORONAVIRUS NL63-RESP PCR NOT DETECTED; CORONAVIRUS OC43-RESP PCR NOT DETECTED; HUMAN METAPNEUMOVIRUS NOT DETECTED; INFLUENZA A- RESP PCR PANEL NOT DETECTED; INFLUENZA B - RESP PCR PANEL NOT DETECTED; M. PNEUMONIAE- RESP PCR PANEL NOT DETECTED; PARAINFLUENZA VIRUS 1 NOT DETECTED; PARAINFLUENZA VIRUS 2 NOT DETECTED; PARAINFLUENZA VIRUS 3 NOT DETECTED; PARAINFLUENZA VIRUS 4 NOT DETECTED; RHINOVIRUS/ENTEROVIRUS NOT DETECTED; RSV- RESP PCR PANEL NOT DETECTED; SARS-CoV-2 -RESP PCR PANEL NOT DETECTED
--- NOTE | 2023-04-01 21:00 | ED Physician Documentation ---
History of Present Illness - Stated complaint Stated Complaint: HEADACHE - Chief complaint Chief Complaint: General - History obtained from History obtained from: Patient - History of Present Illness Timing: Today Pain level max: 0 Pain level now: 0 - Additonal information Additional information: 33-year-old male with fever, vomiting today. Mild dry cough as well. No headache. No neck or back pain. Abdominal pain only when vomiting. No diarrhea. No constipation. Denies any drug use. No IV drug use. Denies any alcohol use. He is staying at a homeless group home. Otherwise asymptomatic currently. Review of Systems Constitutional: reports: Fever, Chills Throat: denies: Sore throat Cardiac: denies: Palpitations Respiratory: reports: Cough GI: reports: Nausea, Vomiting. denies: Diarrhea Skin: denies: Rash Musculoskeletal: denies: Neck pain, Back pain Neurologic: denies: Headache PD PAST MEDICAL HISTORY - Past Medical History Cardiovascular: None, Hypertension Respiratory: Other Neuro: Other Endocrine/Autoimmune: None GI: Crohn's disease : None Psych: Depression Musculoskeletal: Osteoarthritis, Fatigue, Chronic back pain, Other Derm: None - Past Surgical History Past Surgical History: Yes General: Appendectomy, Colonoscopy - Present Medications Home Medications: Ambulatory Orders Medication Instructions Recorded Confirmed Certolizumab [Cimzia] 400 06/08/14 12/29/14 Trazodone HCl 350 mg PO DAILY 06/08/14 01/20/17 Divalproex Sodium [Depakote] 500 mg PO 09/16/15 12/09/15 polyethylene glycoL 3350 [Miralax] 8.5 gm PO DAILY 09/16/15 01/20/17 Methylphenidate HCl 2 tab PO DAILY 12/10/15 01/20/17 [Methylphenidate ER] Divalproex Sodium [Depakote] 1,000 mg pe PO DAILY PM 01/20/17 01/20/17 FLUoxetine [PROzac] 10 mg PO PRN PRN 01/20/17 01/20/17 Methotrexate ORAL 08/04/17 Pantoprazole [Protonix] 40 mg PO DAILY 08/04/17 08/04/17 HYDROcod/ACETAM 5/325 [[place] 5/325] 1 - 2 ea PO Q6H PRN #14 tablet 10/28/20 - Allergies Allergies/Adverse Reactions: Allergies Allergy/AdvReac Type Severity Reaction Status Date / Time mesalamine [From Pentasa] Allergy vomiting Verified 04/01/23 19:13 soybean Allergy Hives Verified 04/01/23 19:13 venom-honey bee Allergy Anaphylaxis Verified 04/01/23 19:13 [bee venom (honey bee)] pantoprazole AdvReac Nausea Verified 04/01/23 19:13 - Social History Does the pt smoke?: No Smoking Status: Never smoker Does the pt drink ETOH?: No Does the pt have substance abuse?: Yes - Immunizations Immunizations are current?: Yes - POLST Patient has POLST: No PD ED PE NORMAL - Vitals Vital signs reviewed: Yes - General General: Alert and oriented X 3, No acute distress - HEENT HEENT: PERRL, Moist mucous membranes - Neck Neck: Supple, no meningeal sign - Cardiac Cardiac: RRR, Strong equal pulses - Respiratory Respiratory: No respiratory distress, Clear bilaterally - Abdomen Abdomen: Soft, Non tender, Non distended - Derm Derm: Warm and dry, No rash - Extremities Extremities: No edema - Neuro Neuro: Alert and oriented X 3 - Psych Psych: Normal mood, Normal affect Results - Vitals Vitals: Vital Signs - 24 hr 04/01/23 04/01/23 04/01/23 19:11 19:13 21:13 Temperature 39.5 C H 38.8 C H Heart Rate 115 H 117 H Respiratory 96 H 18 Rate Blood Pressure 108/76 115/67 O2 Saturation 96 24 L 95 Oxygen O2 Source Room air - Labs Labs: Laboratory Tests 04/01/23 04/01/23 04/01/23 19:25 19:25 19:29 WBC 7.9 RBC 4.89 Hgb 14.8 Hct 43.0 MCV 87.9 MCH 30.3 MCHC 34.4 RDW 12.6 Plt Count 222 MPV 10.3 Neut # (Auto) 4.6 Lymph # (Auto) 2.4 [place] # (Auto) 0.9 Eos # (Auto) 0.0 Baso # (Auto) 0.0 Absolute Nucleated RBC 0.00 Nucleated RBC % 0.0 Sodium 137 Potassium 4.3 Chloride 99 L Carbon Dioxide 28 Anion Gap 10.0 BUN 9 Creatinine 1.0 Estimated GFR (MDRD) 87 L Glucose 107 H Calcium 10.8 H Total Bilirubin 0.4 AST 35 ALT 36 Alkaline Phosphatase 46 Total Protein 8.1 Albumin 4.5 Globulin 3.6 Albumin/Globulin Ratio 1.3 Lipase 29 Urine Color Urine Clarity Urine pH Ur Specific [place] Urine Protein Urine Glucose (UA) Urine Ketones Urine Occult Blood Urine Nitrite Urine Bilirubin Urine Urobilinogen Ur Leukocyte Esterase Ur Microscopic Review Urine Culture Comments Nasal Adenovirus (PCR) NOT DETECTED Nasal B. parapertussis DNA (PCR) NOT DETECTED Nasal Coronavir 229E PCR NOT DETECTED Nasal Coronavir HKU1 PCR NOT DETECTED Nasal Coronavir NL63 PCR NOT DETECTED Nasal Coronavir OC43 PCR NOT DETECTED Nasal Enterovir/Rhinovir PCR NOT DETECTED Nasal Influenza B PCR NOT DETECTED Nasal Influenza A PCR NOT DETECTED Nasal Parainfluen 1 PCR NOT DETECTED Nasal Parainfluen 2 PCR NOT DETECTED Nasal Parainfluen 3 PCR NOT DETECTED Nasal Parainfluen 4 PCR NOT DETECTED Nasal RSV (PCR) NOT DETECTED Nasal B.pertussis DNA PCR NOT DETECTED Nasal C.pneumoniae (PCR) NOT DETECTED [place] Human Metapneumo PCR NOT DETECTED Nasal M.pneumoniae (PCR) NOT DETECTED Nasal SARS-CoV-2 (PCR) NOT DETECTED Urine Opiates Screen Ur Oxycodone Screen Urine Methadone Screen Ur Propoxyphene Screen Ur Barbiturates Screen Ur Tricyclics Screen Ur Phencyclidine Scrn Ur Amphetamine Screen U Methamphetamines Scrn U Benzodiazepines Scrn Urine Cocaine Screen U Cannabinoids Screen Ethyl Alcohol < 10.0 04/01/23 21:20 WBC RBC Hgb Hct MCV MCH MCHC RDW Plt Count MPV Neut # (Auto) Lymph # (Auto) [place] # (Auto) Eos # (Auto) Baso # (Auto) Absolute Nucleated RBC Nucleated RBC % Sodium Potassium Chloride Carbon Dioxide Anion Gap BUN Creatinine Estimated GFR (MDRD) Glucose Calcium Total Bilirubin AST ALT Alkaline Phosphatase Total Protein Albumin Globulin Albumin/Globulin Ratio Lipase Urine Color YELLOW Urine Clarity CLEAR Urine pH 7.5 Ur Specific [place] 1.020 Urine Protein NEGATIVE Urine Glucose (UA) NEGATIVE Urine Ketones NEGATIVE Urine Occult Blood NEGATIVE Urine Nitrite NEGATIVE Urine Bilirubin NEGATIVE Urine Urobilinogen 0.2 (NORMAL) Ur Leukocyte Esterase NEGATIVE Ur Microscopic Review NOT INDICATED Urine Culture Comments NOT INDICATED Nasal Adenovirus (PCR) Nasal B. parapertussis DNA (PCR) Nasal Coronavir 229E PCR Nasal Coronavir HKU1 PCR Nasal Coronavir NL63 PCR Nasal Coronavir OC43 PCR Nasal Enterovir/Rhinovir PCR Nasal Influenza B PCR Nasal Influenza A PCR Nasal Parainfluen 1 PCR Nasal Parainfluen 2 PCR Nasal Parainfluen 3 PCR Nasal Parainfluen 4 PCR Nasal RSV (PCR) Nasal B.pertussis DNA PCR Nasal C.pneumoniae (PCR) [place] Human Metapneumo PCR Nasal M.pneumoniae (PCR) Nasal SARS-CoV-2 (PCR) Urine Opiates Screen NEGATIVE Ur Oxycodone Screen NEGATIVE Urine Methadone Screen NEGATIVE Ur Propoxyphene Screen NEGATIVE Ur Barbiturates Screen NEGATIVE Ur Tricyclics Screen NEGATIVE Ur Phencyclidine Scrn NEGATIVE Ur Amphetamine Screen NEGATIVE U Methamphetamines Scrn NEGATIVE U Benzodiazepines Scrn NEGATIVE Urine Cocaine Screen NEGATIVE U Cannabinoids Screen POSITIVE H Ethyl Alcohol PD Medical Decision Making - ED course Complexity details: reviewed results, re-evaluated patient, considered diff erential, d/w patient ED course: Patient is well-appearing, nontoxic. Given Tylenol. Given IV fluids. Vomiting resolved. No acute findings on laboratory testing. Respiratory PCR is negative. He is feeling better. He is awaiting a chest x-ray, assuming this is negative the patient likely has a viral syndrome and can likely go home and follow-up with his PCP. Patient will be signed out to Dr. Peterson for final disposition. This document was made in part using voice recognition software. While efforts are made to proofread this document, sound alike and grammatical errors may occur. Departure - Departure Clinical Impression: Fever Qualifiers: Fever type: unspecified Qualified Code(s): R50.9 - Fever, unspecified Vomiting Qualifiers: Vomiting type: unspecified Nausea presence: with nausea Qualified Code(s): R11.2 - Nausea with vomiting, unspecified Condition: Stable Forms: PCP List
[2023-04-01 21:23] LABS: MUDS CUTOFF CONCENTRATIONS CUTOFF CONC BELOW:
[2023-04-01 21:30] LABS: BILIRUBIN,URINE NEGATIVE (NEGATIVE); GLUCOSE, URINE (UA) NEGATIVE (NEGATIVE); KETONES,URINE (UA) NEGATIVE (NEGATIVE); LEUKOCYTE ESTERASE, URINE NEGATIVE (NEGATIVE); NITRITE,URINE NEGATIVE (NEGATIVE); OCCULT BLOOD,URINE NEGATIVE (NEGATIVE); PH,URINE 7.5 PH (5.0-7.5); PROTEIN,URINE NEGATIVE (NEGATIVE); UROBILINOGEN,URINE 0.2 (NORMAL) E.U./dL (NORMAL)
[2023-04-01 21:33] LABS: CLARITY,URINE CLEAR (CLEAR)
[2023-04-01 21:40] LABS: AMPHETAMINE SCREEN,URINE NEGATIVE (NEGATIVE); BARBITURATE SCREEN,UR NEGATIVE (NEGATIVE); BENZODIAZEPINES SCREEN, URINE NEGATIVE (NEGATIVE); COCAINE SCREEN URINE NEGATIVE (NEGATIVE); METHADONE SCREEN, URINE NEGATIVE (NEGATIVE); METHAMPHETAMINES SCREEN, URINE NEGATIVE (NEGATIVE); OPIATE SCREEN, URINE NEGATIVE (NEGATIVE); OXYCODONE SCREEN, URINE NEGATIVE (NEGATIVE); PROPOXYPHENE SCREEN, URINE NEGATIVE (NEGATIVE); THC CANNABINOID SCREEN, URINE POSITIVE (NEGATIVE); TRICYCLIC ANTIDEPRESSANT,URINE NEGATIVE (NEGATIVE)
--- NOTE | 2023-04-01 22:10 | ED Physician Documentation ---
ED Addendum - Addendum Addendum: 04/01/23 22:09 Patient endorsed to me by Dr. Carmona at 10 PM shift change awaiting chest x-ray. Will follow up results and likely discharge with outpatient follow-up with primary care provider. Return precautions given. Impression 1 fever 2 cough 3 nausea and vomiting Condition stable Disposition Home
--- NOTE | 2023-04-01 22:55 | XRAY Report ---
PROCEDURE: Chest 1 View X-Ray INDICATIONS: fever TECHNIQUE: One view of the chest was acquired. COMPARISON: Chest x-ray, 02/09/2020. FINDINGS: Surgical changes and devices: None. Lungs and pleura: No pleural effusions or pneumothorax. Lungs are clear. Mediastinum: Mediastinal contours appear normal. Heart size is normal. Bones and chest wall: No suspicious bony lesions. Overlying soft tissues appear unremarkable. IMPRESSION: No acute cardiopulmonary process. Reviewed by: Lucas Navarrete MD on 04/01/2023 10:54 PM PDT Approved by: Lucas Navarrete MD on 04/01/2023 10:54 PM PDT Station ID: [id number]
[2023-04-01] MEDS ORDERED: ONDANSETRON ODT 4 MG Prepack 2 TL STA (23:07)
[2023-04-01 23:19] VITALS: BP 109/76; O2SAT 94
== END 2023-04-01 23:24 | disposition home or self-care (01) ==
LOC: ED 19:04
DX: R50.9 Fever, unspecified (principal); R11.2 Nausea with vomiting, unspecified; R05.9 Cough, unspecified; Z20.822 Contact with and (suspected) exposure to COVID-19; Z59.01 Sheltered homelessness
CPT/HCPCS: 36415; 71045; 80053; 80306; 80320; 81003; 83690; 85025; 87633; 99283; 99284; A9270; 81001; 87086

== ENCOUNTER 2023-04-02 00:11 | Emergency (ER) | payer MEDICAID | END 2023-04-02 00:26 | disposition left against medical advice (07) | LOC: ED 00:11 | DX: Z53.21 Procedure and treatment not carried out due to patient leaving prior to being seen by health care provider (principal) ==

== ENCOUNTER 2023-04-04 08:32 | Outpatient (CLI) | payer MEDICAID | END 2023-04-04 08:33 | disposition critical access hospital (66) | LOC: EMS 08:32 | DX: R11.2 Nausea with vomiting, unspecified (principal); R10.817 Generalized abdominal tenderness; R00.0 Tachycardia, unspecified | CPT/HCPCS: A0425; A0427; A0999 ==

== ENCOUNTER 2023-04-04 09:14 | Emergency (ER) | payer MEDICAID ==
[2023-04-04 09:57] LABS: BASOPHILS % (AUTO) 0.3 %; EOSINOPHILS % (AUTO) 0.3 %; HCT - HEMATOCRIT 40.9 % (42.0-52.0); HGB - HEMOGLOBIN 13.8 g/dL (14.0-18.0); LYMPHOCYTES % (AUTO) 35.7 %; MEAN CORPUSCULAR HEMOGLOBIN 29.8 pg (27.0-31.0); MEAN CORPUSCULAR HGB CONC 33.7 g/dL (32.0-36.0); MEAN CORPUSCULAR VOLUME 88.3 fL (80.0-94.0); MEAN PLATELET VOLUME 10.1 fL (7.4-11.4); MONOCYTES % (AUTO) 9.1 %; NEUTROPHILS % (AUTO) 54.3 %; PLT - PLATELET COUNT 200 10^3/uL (130-450); RED BLOOD COUNT 4.63 10^6/uL (4.70-6.10); RED CELL DISTRIBUTION WIDTH 12.1 % (12.0-15.0); WHITE BLOOD COUNT 7.5 x10^3/uL (4.8-10.8)
[2023-04-04 10:13] LABS: ALBUMIN 4.1 g/dL (3.2-5.5); ALBUMIN/GLOBULIN RATIO 1.1 (1.0-2.2); BILIRUBIN,TOTAL 0.8 mg/dL (0.2-1.0); CALCIUM 8.6 mg/dL (8.5-10.3); CREATININE 0.7 mg/dL (0.6-1.3); POTASSIUM 3.5 mmol/L (3.5-4.5); TOTAL PROTEIN 7.7 g/dL (6.4-8.9)
[2023-04-04 10:23] LABS: ABNORMAL LYMPHS % (MANUAL) 0 %
[2023-04-04 10:31] LABS: BAND NEUTROPHILS % (MANUAL) 18 %; DIFFERENTIAL COMMENT MANUAL DIFFERENTIAL; EOSINOPHILS # (MANUAL) 0.2 10^3/uL (0-0.7); LYMPHOCYTES # (MANUAL) 3.2 10^3/uL (1.5-3.5); LYMPHOCYTES % (MANUAL) 26 %; MONOCYTES # (MANUAL) 0.9 10^3/uL (0.0-1.0); NEUTROPHILS # (MANUAL) 3.3 10^3/uL (1.5-6.6); RBC MORPHOLOGY (MULTIPLE) 1+ ANISOCYTOSIS (NORMAL); REACTIVE LYMPHS % (MANUAL) 16 %; WBC MORPHOLOGY (MULTIPLE) 2+ REACTIVE LYMPHS (NORMAL)
--- NOTE | 2023-04-04 11:19 | ED Physician Documentation ---
PD HPI NVD - Stated complaint Stated Complaint: N/V - Chief complaint Chief Complaint: Abd Pain - History obtained from History obtained from: Patient - Additonal information Additional information: Patient is a 33-year-old male with a history of Crohn's presenting for evaluation of what he describes as a Crohn's flareup and states he has been having nausea and vomiting for the past 3 days. He denies diarrhea or bloody stools. He denies abdominal pain or cramping. He has been seen here for this and was prescribed Zofran which she states was helping but he ran out of it. He denies fever, chest pain, shortness of air. No blood in emesis. Denies dysuria.Reports he has a GI doctor in [place]. He is not currently on any medications for Crohn's other than pantoprazole.EMS administered IV Zofran prior to arrival and he reports his nausea has resolved. Review of Systems Constitutional: denies: Fever Cardiac: denies: Chest pain / pressure Respiratory: denies: Dyspnea GI: reports: Nausea, Vomiting. denies: Abdominal Pain, Diarrhea PD PAST MEDICAL HISTORY - Past Medical History Cardiovascular: None, Hypertension Respiratory: Other Neuro: Other Endocrine/Autoimmune: None GI: Crohn's disease : None Psych: Depression Musculoskeletal: Osteoarthritis, Fatigue, Chronic back pain, Other Derm: None - Past Surgical History Past Surgical History: Yes General: Appendectomy, Colonoscopy - Present Medications Home Medications: Ambulatory Orders Medication Instructions Recorded Confirmed Certolizumab [Cimzia] 400 06/08/14 12/29/14 Trazodone HCl 350 mg PO DAILY 06/08/14 01/20/17 Divalproex Sodium [Depakote] 500 mg PO 09/16/15 12/09/15 polyethylene glycoL 3350 [Miralax] 8.5 gm PO DAILY 09/16/15 01/20/17 Methylphenidate HCl 2 tab PO DAILY 12/10/15 01/20/17 [Methylphenidate ER] Divalproex Sodium [Depakote] 1,000 mg pe PO DAILY PM 01/20/17 01/20/17 FLUoxetine [PROzac] 10 mg PO PRN PRN 01/20/17 01/20/17 Methotrexate ORAL 08/04/17 Pantoprazole [Protonix] 40 mg PO DAILY 08/04/17 08/04/17 HYDROcod/ACETAM 5/325 [[place] 5/325] 1 - 2 ea PO Q6H PRN #14 tablet 10/28/20 Acetaminophen [Tylenol] 650 mg PO Q6H PRN #20 tab 04/01/23 Ondansetron Odt [Zofran Odt] 4 mg TL Q6H PRN #10 tablet 04/01/23 Ondansetron Odt [Zofran] 4 mg TL Q6H PRN #12 tablet 04/04/23 - Allergies Allergies/Adverse Reactions: Allergies Allergy/AdvReac Type Severity Reaction Status Date / Time mesalamine [From Pentasa] Allergy vomiting Verified 04/04/23 09:28 soybean Allergy Hives Verified 04/04/23 09:28 venom-honey bee Allergy Anaphylaxis Verified 04/04/23 09:28 [bee venom (honey bee)] pantoprazole AdvReac Nausea Verified 04/04/23 09:28 - Social History Does the pt smoke?: No Smoking Status: Never smoker Does the pt drink ETOH?: No Does the pt have substance abuse?: Yes - Immunizations Immunizations are current?: Yes - POLST Patient has POLST: No PD ED PE NORMAL - General General: Alert and oriented X 3, No acute distress, Well developed/nourished - HEENT HEENT: Atraumatic - Neck Neck: Supple, no meningeal sign - Cardiac Cardiac: RRR, No murmur - Respiratory Respiratory: No respiratory distress, Clear bilaterally - Abdomen Abdomen: Normal bowel sounds, Soft, Non tender, Non distended - Derm Derm: Warm and dry - Neuro Neuro: Normal speech Results - Vitals Vitals: Vital Signs - 24 hr 04/04/23 04/04/23 09:20 11:36 Temperature 36.0 C L 36.2 C L Heart Rate 93 93 Respiratory 20 16 Rate Blood Pressure 118/91 H 101/82 H O2 Saturation 95 99 Oxygen O2 Source Room air - Labs Labs: Laboratory Tests 04/04/23 04/04/23 09:51 09:51 WBC 7.5 RBC 4.63 L Hgb 13.8 L Hct 40.9 L MCV 88.3 MCH 29.8 MCHC 33.7 RDW 12.1 Plt Count 200 MPV 10.1 Neut # (Auto) Not Reportable Lymph # (Auto) Not Reportable [place] # (Auto) Not Reportable Eos # (Auto) Not Reportable Baso # (Auto) Not Reportable Absolute Nucleated RBC Not Reportable Total Counted 100 Band Neuts % (Manual) 18 H Reactive Lymphs % (Man) 16 Abnorm Lymph % (Manual) 0 Nucleated RBC % Not Reportable Neutrophils # (Manual) 3.3 Lymphocytes # (Manual) 3.2 Monocytes # (Manual) 0.9 Eosinophils # (Manual) 0.2 Basophils # (Manual) 0.0 Differential Comment MANUAL DIFFERENTIAL WBC Morphology 2+ REACTIVE LYMPHS RBC Morph Micro Appear 1+ ANISOCYTOSIS Sodium 135 Potassium 3.5 Chloride 99 L Carbon Dioxide 28 Anion Gap 8.0 BUN 15 Creatinine 0.7 Estimated GFR (MDRD) 132 Glucose 86 Calcium 8.6 Total Bilirubin 0.8 AST 82 H ALT 118 H Alkaline Phosphatase 42 Total Protein 7.7 Albumin 4.1 Globulin 3.6 Albumin/Globulin Ratio 1.1 Lipase 14 PD Medical Decision Making - ED course Complexity details: reviewed results, re-evaluated patient, d/w patient ED course: Patient presenting for evaluation of nausea and vomiting. Has had other ED visits with similar presentations. Vital signs are stable. Received Zofran from EMS as well as IV fluids and already feeling improved. CBC and chemistries were obtained and reviewed. Mild elevation in AST and ALT. On initial and repeat abdominal exams he has no tenderness with specific attention paid to the right upper quadrant. I did review his abnormal lab results with him. No findings on exam to necessitate emergent imaging. He is tolerating p.o. Patient counseled on continued supportive care as well as need for follow-up with PCP or GI. He is counseled on concerning symptoms to return for. 1118 - Tolerated p.o. challenge. Repeat abdominal exam remains benign.Reviewed abnormal labs including mildly elevated AST and ALT. Departure - Departure Disposition: 01 Home, Self Care Clinical Impression: Nausea & vomiting, Abnormal liver enzymes Condition: Stable Instructions: ED Nausea Vomiting Prescriptions: Ondansetron Odt [Zofran] 4 mg TL Q6H PRN #12 tablet PRN Reason: Nausea / Vomiting Comments: Your liver markers were slightly elevated. I would recommend close follow-up with your primary care or GI for recheck of your liver markers to make sure they are returning to normal or see if you need further evaluation. I have sent a prescription for an antinausea medication to [facility] in [place]. Return to the ER with any worsening symptoms. Forms: PCP List Discharge Date/Time: 04/04/23 11:37
[2023-04-04 11:42] VITALS: BP 101/82; O2SAT 99
== END 2023-04-04 11:37 | disposition home or self-care (01) ==
LOC: EDUNIT# → ED 09:14
DX: R11.2 Nausea with vomiting, unspecified (principal); R74.01 Elevation of levels of liver transaminase levels; I10 Essential (primary) hypertension; K50.90 Crohn's disease, unspecified, without complications; Z79.899 Other long term (current) drug therapy
CPT/HCPCS: 36415; 80053; 83690; 85025; 99283

== ENCOUNTER 2023-05-11 07:06 | Outpatient (CLI) | payer MEDICAID | END 2023-05-11 07:07 | disposition EMS.NT | LOC: EMS 07:06 | DX: L98.9 Disorder of the skin and subcutaneous tissue, unspecified (principal) ==